=== PATIENT | male | born 1945 ===

== ENCOUNTER 2024-11-21 11:27 | Outpatient (AMB) | payer MEDICARE, SELFPAY | END 2024-11-21 11:33 | disposition home or self-care (01) | LOC: HO.HMGAL 11:27 | PROVIDERS: PCP Internal Medicine; Visit Provider Registered Nurse Emergency | DX: J30.89 Other allergic rhinitis (principal) | CPT/HCPCS: 95117; 95165 ==

== ENCOUNTER 2025-02-04 10:45 | Outpatient (AMB) | payer MEDICARE, SELFPAY | END 2025-02-04 10:46 | disposition home or self-care (01) | LOC: HO.HMGAL 10:45 | PROVIDERS: PCP Internal Medicine; Visit Provider Registered Nurse Emergency | DX: J30.89 Other allergic rhinitis (principal) | CPT/HCPCS: 95117; 95165 ==